=== PATIENT | female | born 1985 | race Asian ===

== ENCOUNTER 2022-03-18 17:02 | Observation (INO) | payer OTHER ==
[2022-03-18 17:31] VITALS: BMI 17.9
[2022-03-18 18:04] LABS: Hemoglobin 11.3 g/dL (12.0-15.5); Mean Corpuscular HGB CONC 33.3 g/dL (32.0-36.0); Mean Corpuscular Hemoglobin 31.2 pg (27.0-33.0); Mean Corpuscular Volume 93.6 fl (81.6-98.3); Platelet Count 262 10x3/uL (150-450); RBC Distribution Width 13.1 % (11.5-14.5); Red Blood Cell (RBC) Count 3.62 10x6/uL (3.90-5.03); White Blood Cell (WBC) Count 8.6 10x3/uL (3.5-10.5)
[2022-03-18 18:29] LABS: Bilirubin Neg (Negative); Blood, Urine 25 (Negative); Clarity Clear (Clear); Glucose, Urine (Dipstick) Normal (Negative); Ketone, Urine Negative (Negative); Leukocyte 500 (Negative); Nitrite Negative (Negative); Protein, Urine (Dipstick) Negative (Neg-Trace); Urobilinogen Normal mg/dL (Less than 2)
[2022-03-18 18:38] LABS: Bacteria/HPF 1+ HPF (None Seen); RBC/HPF 0-3 HPF (0-3); Squamous Epithelial 0-3 HPF (0-3)
[2022-03-18] MEDS ORDERED: HYDROcodone/Acetaminophen 5/325 mg Tablet PO SCH (19:00)
[2022-03-18] MEDS: Lactated Ringer's 1,000 ML IV SCH ×2 (19:14→23:24)
[2022-03-18] MEDS ORDERED: Butorphanol Tartrate 1 MG/ML VIAL SLOW IVP PRN (19:15)
[2022-03-18] MEDS ORDERED: Promethazine HCl 25 MG/ML VIAL IM PRN (19:15)
[2022-03-18] MEDS ORDERED: hydrALAZINE 20 MG/ML VIAL SLOW IVP PRN (19:15)
[2022-03-18] MEDS ORDERED: Ondansetron PF 4 MG/2 ML Vial IVP PRN (19:15)
[2022-03-18] MEDS ORDERED: ceFAZolin 2 GM/Dextrose 50 ML IVPB ONE (19:18)
[2022-03-18] MEDS ORDERED: ceFAZolin 2 GM/Dextrose 50 ML 2 GM in Premix Bag 1 BAG IVPB SCH (19:30)
[2022-03-18] MEDS: Acetaminophen 500 MG TAB PO PRN (21:44)
[2022-03-19] MEDS: Acetaminophen 500 MG TAB PO PRN ×2 (03:59→10:32)
[2022-03-19] MEDS ORDERED: ceFAZolin 2 GM/Dextrose 50 ML IVPB ONE (12:38)
[2022-03-19] MEDS ORDERED: ceFAZolin 2 GM/Dextrose 50 ML 2 GM in Premix Bag 1 BAG IVPB SCH (13:00)
[2022-03-19] MEDS ORDERED: Lidocaine 1% PF 5 ML VIAL FS SCH (19:30)
[2022-03-19] MEDS ORDERED: cefTRIAXone\\ROCEPHIN 1 GM VIAL IM SCH (19:30)
== END 2022-03-19 20:35 | disposition home or self-care (01) ==
LOC: CSHLD/OP 17:02 → CSHLD 19:13
PROVIDERS: ADMIT Obstetrics & Gynecology; ATTEND Obstetrics & Gynecology
DX: O23.02 Infections of kidney in pregnancy, second trimester (principal); O99.891 Other specified diseases and conditions complicating pregnancy; N13.30 Unspecified hydronephrosis; N13.4 Hydroureter; O09.522 Supervision of elderly multigravida, second trimester; Z3A.27 27 weeks gestation of pregnancy; Z79.82 Long term (current) use of aspirin
CPT/HCPCS: 74176; 81003; 81015; 85027; 96372; 96374; 96375; 96376; 99285; G0378; J0595; J0690; J0696; J2405; J2550; J7120

== ENCOUNTER 2022-05-15 15:36 | Inpatient (IN) | payer OTHER ==
[2022-05-15 16:31] VITALS: BMI 18.3
[2022-05-15] MEDS ORDERED: hydrALAZINE 20 MG/ML VIAL SLOW IVP PRN (16:40)
[2022-05-15] MEDS ORDERED: Butorphanol Tartrate 1 MG/ML VIAL SLOW IVP PRN (16:40)
[2022-05-15] MEDS ORDERED: Acetaminophen 500 MG TAB PO PRN (16:40)
[2022-05-15] MEDS ORDERED: Promethazine HCl 25 MG/ML VIAL IM PRN (16:40)
[2022-05-15] MEDS ORDERED: Zolpidem Tartrate 5 MG TAB PO PRN (16:40)
[2022-05-15] MEDS ORDERED: Ondansetron PF 4 MG/2 ML Vial IVP PRN (16:40)
[2022-05-15] MEDS ORDERED: Azithromycin 500 MG in Sodium Chloride 0.9% 250 ML 250 ML IVPB SCH (17:00)
[2022-05-15 17:02] LABS: Hemoglobin 14.6 g/dL (12.0-15.5); Mean Corpuscular HGB CONC 34.4 g/dL (32.0-36.0); Mean Corpuscular Hemoglobin 31.7 pg (27.0-33.0); Mean Corpuscular Volume 92.2 fl (81.6-98.3); Mean Platelet Volume 10.6 fl (7.4-10.4); Platelet Count 255 10x3/uL (150-450); RBC Distribution Width 13.2 % (11.5-14.5); White Blood Cell (WBC) Count 6.2 10x3/uL (3.5-10.5)
[2022-05-15] MEDS: Betamet Acet/Betamet Na Ph 30 MG/5 ML VIAL IM SCH (17:16)
[2022-05-15 17:36] LABS: Syphilis Antibody Nonreactive (Nonreactive); Syphilis Antibody Index 0.05 S/CO (<1.00 Non-Reactive)
[2022-05-15] MEDS ORDERED: hydrOXYzine Pamoate 25 mg Capsule PO PRN (17:52)
[2022-05-15] MEDS ORDERED: Acetaminophen 325 MG TAB PO PRN (17:53)
[2022-05-15] MEDS: Ampicillin 2 GM in Sodium Chloride 0.9% 100 ML IVPB SCH (18:19)
[2022-05-15 18:44] LABS: HIV (1/2) Antibody/Antigen Non-Reactive (NonReactive); HIV 1/2 INDEX 0.07 S/CO (<1.00)
[2022-05-15 19:02] LABS: SARS-CoV-2 NAA Rapid Test Not Detected (NotDetected)
[2022-05-15 21:03] LABS: HBSAg Index 4954.86 S/CO (0-0.99)
[2022-05-15 21:04] LABS: Hep B Surf Ag Reflx Confirmation S/CO (NonReactive)
[2022-05-16] MEDS: Ampicillin 2 GM in Sodium Chloride 0.9% 100 ML IVPB SCH ×2 (00:14→06:01)
[2022-05-16] MEDS: Lactated Ringer's 1,000 ML IV SCH ×3 (00:14→10:05)
[2022-05-16] MEDS: Betamet Acet/Betamet Na Ph 30 MG/5 ML VIAL IM SCH (11:44)
[2022-05-17 16:37] LABS: Hep B Surface AG-Rflx Sendout Confirm. indicated (Negative)
== END 2022-05-16 12:30 | disposition home or self-care (01) | DRG 833 ==
LOC: CSHLD/OP 15:36 → CSHLD 16:22
PROVIDERS: ADMIT Obstetrics & Gynecology; ATTEND Obstetrics & Gynecology
DX: O60.03 Preterm labor without delivery, third trimester (principal); Z20.822 Contact with and (suspected) exposure to COVID-19; Z3A.35 35 weeks gestation of pregnancy; Z87.442 Personal history of urinary calculi; K73.9 Chronic hepatitis, unspecified; Z79.899 Other long term (current) drug therapy; Z79.82 Long term (current) use of aspirin; O99.613 Diseases of the digestive system complicating pregnancy, third trimester
CPT/HCPCS: 36415; 85027; 86780; 86850; 86900; 86901; 87340; 87389; J0290; J0456; J0702; J3490; J7050; J7120; U0002

== ENCOUNTER 2022-05-20 23:52 | Inpatient (IN) | payer OTHER ==
[2022-05-21 00:21] VITALS: BMI 18.3
[2022-05-21] MEDS ORDERED: hydrALAZINE 20 MG/ML VIAL SLOW IVP PRN ×2 (00:50→04:50)
[2022-05-21] MEDS ORDERED: Acetaminophen 500 MG TAB PO SCH (01:00)
[2022-05-21] MEDS: Lactated Ringer's 1,000 ML IV SCH ×2 (02:08→03:18)
[2022-05-21] MEDS ORDERED: Promethazine HCl 25 MG/ML VIAL IM PRN ×2 (02:24→03:18)
[2022-05-21] MEDS ORDERED: Ondansetron PF 4 MG/2 ML Vial IVP PRN ×3 (02:24→04:50)
[2022-05-21] MEDS ORDERED: Lidocaine 1% (PF) 30 ML VIAL SC PRN (02:28)
[2022-05-21] MEDS ORDERED: Ibuprofen 800 MG TAB PO PRN (02:28)
[2022-05-21] MEDS ORDERED: Methylergonovine 0.2 MG/ML VIAL IM PRN (02:28)
[2022-05-21] MEDS ORDERED: Misoprostol 200 MCG TAB PR PRN (02:28)
[2022-05-21] MEDS ORDERED: Carboprost 250 MCG/ML AMP IM PRN (02:28)
[2022-05-21] MEDS ORDERED: NS w/ Oxytocin 30 units 500 ML IV SCH ×3 (02:30→05:00)
[2022-05-21] MEDS ORDERED: Fentanyl 2 mcg/Bup 0.1% Cadd 100 ML ONE (02:33)
[2022-05-21 02:46] LABS: Hemoglobin 13.6 g/dL (12.0-15.5); Mean Corpuscular Hemoglobin 30.9 pg (27.0-33.0); Mean Corpuscular Volume 90.9 fl (81.6-98.3); Mean Platelet Volume 10.2 fl (7.4-10.4); Platelet Count 302 10x3/uL (150-450); RBC Distribution Width 13.4 % (11.5-14.5); White Blood Cell (WBC) Count 10.8 10x3/uL (3.5-10.5)
[2022-05-21] MEDS ORDERED: hydrOXYzine Pamoate 25 mg Capsule PO PRN (03:00)
[2022-05-21] MEDS ORDERED: diphenhydrAMINE 50 MG/ML VIAL IVP PRN (03:18)
[2022-05-21] MEDS ORDERED: Moisturizing Cream (Eucerin) 113 GM JAR TOP PRN (03:18)
[2022-05-21] MEDS ORDERED: Acetaminophen 325 MG TAB PO PRN ×2 (03:18→04:52)
[2022-05-21] MEDS ORDERED: ePHEDrine Sulfate 50 MG/10 ML VIAL SLOW IVP PRN (03:18)
[2022-05-21] MEDS ORDERED: Lactated Ringer's 500 ML IV PRN (03:18)
[2022-05-21] MEDS ORDERED: Naloxone HCl 0.4 mg/ml Vial IVP PRN ×2 (03:18)
[2022-05-21 03:20] LABS: Syphilis Antibody Nonreactive (Nonreactive); Syphilis Antibody Index 0.04 S/CO (<1.00 Non-Reactive)
[2022-05-21] MEDS ORDERED: Fentanyl 2 mcg/Bupivacaine 0.1% Cassette 100 ML EPIDURAL SCH (03:30)
[2022-05-21] MEDS ORDERED: Communication Order-Pharmacy FS SCH (03:30)
[2022-05-21] MEDS ORDERED: Preparation H Ointment 28 GM TUBE PR PRN (04:50)
[2022-05-21] MEDS ORDERED: HYDROcodone/Acetaminophen 5/325 mg Tablet PO PRN ×2 (04:50)
[2022-05-21] MEDS ORDERED: Benzocaine-Menthol 82.5 ML CAN TOP PRN (04:50)
[2022-05-21] MEDS ORDERED: Milk Of Magnesia 30 ML UDCUP PO PRN (04:50)
[2022-05-21] MEDS ORDERED: Boostrix 0.5 ML (Tdap) VIAL IM ONE (04:50)
[2022-05-21] MEDS ORDERED: Lanolin Ointment 7 GM TUBE TOP PRN (04:50)
[2022-05-21] MEDS ORDERED: Zolpidem Tartrate 5 MG TAB PO PRN (04:50)
[2022-05-21] MEDS ORDERED: Bisacodyl 10 MG SUPP PR PRN (04:50)
[2022-05-21] MEDS ORDERED: diphenhydrAMINE 25 MG CAP PO PRN (04:50)
[2022-05-21] MEDS ORDERED: Misoprostol 200 MCG TAB VAG PRN (04:50)
[2022-05-21] MEDS ORDERED: Witch Hazel-Glycerin 1 EACH JAR TOP PRN (04:52)
[2022-05-21 06:14] LABS: Hep B Surf Ag Reflx Confirmation S/CO (NonReactive)
[2022-05-21] MEDS: Ibuprofen 800 MG TAB PO SCH ×3 (06:39→21:38)
[2022-05-21 07:36] LABS: HBSAg Index 5945.67 S/CO (0-0.99)
[2022-05-21] MEDS: Prenatal Vitamin 1 TAB PO SCH (08:21)
[2022-05-21] MEDS: Ferrous Sulfate 325 MG TAB PO SCH ×2 (08:21→14:52)
[2022-05-21] MEDS: Docusate 100 MG CAP PO SCH ×2 (08:21→21:38)
[2022-05-22] MEDS: Ibuprofen 800 MG TAB PO SCH ×3 (05:26→21:14)
[2022-05-22] MEDS: Ferrous Sulfate 325 MG TAB PO SCH ×2 (07:55→18:26)
[2022-05-22] MEDS: Docusate 100 MG CAP PO SCH ×2 (09:08→21:14)
[2022-05-22] MEDS: Prenatal Vitamin 1 TAB PO SCH (09:08)
[2022-05-22 13:37] LABS: Hep B Surface AG-Rflx Sendout Positive (Negative)
[2022-05-23] MEDS: Ibuprofen 800 MG TAB PO SCH (05:21)
[2022-05-23] MEDS: Ferrous Sulfate 325 MG TAB PO SCH (07:22)
[2022-05-23 08:12] VITALS: BP 103/67; TEMP 97.9
[2022-05-23] MEDS: Prenatal Vitamin 1 TAB PO SCH (08:19)
[2022-05-23] MEDS: Docusate 100 MG CAP PO SCH (08:19)
== END 2022-05-23 14:20 | disposition home or self-care (01) | DRG 807 ==
LOC: CSHLD/OP 23:52 → CSHLD 05-21 02:33 → CSHPP 05-21 07:29
PROVIDERS: ADMIT Obstetrics & Gynecology; ATTEND Obstetrics & Gynecology
PROC: 10D07Z6 Extraction of Products of Conception, Vacuum, Via Natural or Artificial Opening (ICD-10-PCS; principal; 2022-05-21)
PROC: 0KQM0ZZ Repair Perineum Muscle, Open Approach (ICD-10-PCS; 2022-05-21)
PROC: 0W8NXZZ Division of Female Perineum, External Approach (ICD-10-PCS; 2022-05-21)
PROC: 10907ZC Drainage of Amniotic Fluid, Therapeutic from Products of Conception, Via Natural or Artificial Opening (ICD-10-PCS; 2022-05-21)
DX: O60.14X0 Preterm labor third trimester with preterm delivery third trimester, not applicable or unspecified (principal); Z37.0 Single live birth; Z3A.36 36 weeks gestation of pregnancy; Z79.82 Long term (current) use of aspirin; Z79.899 Other long term (current) drug therapy; O76 Abnormality in fetal heart rate and rhythm complicating labor and delivery; O70.1 Second degree perineal laceration during delivery
CPT/HCPCS: 36415; 51702; 85027; 86780; 86850; 86900; 86901; 87340; 88307; 99285; J2590; J7120